=== PATIENT | female | born 1990 | race Caucasian/White ===

== ENCOUNTER 2016-07-29 15:13 | Emergency (ER) | payer SELFPAY ==
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
[2016-07-29] MEDS ORDERED: IOPAMIDOL (ISOVUE-300) 100 ML BTL IV ONE (15:44)
[2016-07-29 16:05] LABS: % IMMATURE GRANULYOCYTES 0.3 % (0.0-1.1); ABSOLUTE IMMATURE GRANULOCYTES 0.03 10^3/uL (0.00-0.10); ADD DIFF? NO; ADD MORPH? NO; ADD SCAN? NO; ATYPICAL LYMPHOCYTE FLAG 10 (0-99); FRAGMENT RBC FLAG 0 (0-99); HEMATOCRIT 38.2 % (38.0-47.0); HEMOGLOBIN 13.2 g/dL (12.6-16.3); LEFT SHIFT FLG 0 (0-99); LIPEMIA HEMOLYSIS FLAG 90 (0-99); MEAN CELL HEMOGLOBIN 33.8 pg (27.9-34.1); MEAN CELL HEMOGLOBIN CONCENTR. 34.6 g/dL (32.4-36.7); MEAN CELL VOLUME 97.9 fL (81.5-99.8); MEAN PLATELET VOLUME 10.3 fL (8.7-11.7); PLATELET CLUMPS FLAG 0 (0-99); PLATELET COUNT 291 10^3/uL (150-400); RED CELL DISTRIBUTION WIDTH 11.8 % (11.5-15.2)
[2016-07-29 16:14] LABS: COLOR YELLOW; LEUKOCYTE ESTERASE,URINE NEGATIVE (NEGATIVE); NITRITE,URINE NEGATIVE (NEGATIVE); PH,URINE 5.5 (5.0-7.5)
[2016-07-29 16:23] LABS: ALANINE AMINOTRANSFERASE 28 IU/L (9-52); ALBUMIN 3.9 g/dL (3.5-5.0); ALKALINE PHOSPHATASE 58 IU/L (38-126); ANION GAP 13 mEq/L (8-16); ASPARTATE AMINOTRANSFERASE 18 IU/L (14-46); BILIRUBIN,TOTAL 0.6 mg/dL (0.1-1.4); BILIRUBIN-CONJUGATED 0.3 mg/dL (0.0-0.5); BILIRUBIN-UNCONJUGATED 0.3 mg/dL (0.0-1.1); CALCIUM 9.3 mg/dL (8.5-10.4); CARBON DIOXIDE 24 mEq/l (22-31); CHLORIDE 108 mEq/L (97-110); CREATININE 0.6 mg/dL (0.6-1.0); GLOMERULAR FILTRATION RATE > 60; GLUCOSE 124 mg/dL (70-100); POTASSIUM 3.7 mEq/L (3.5-5.2); SODIUM 145 mEq/L (134-144); TOTAL PROTEIN 6.8 g/dL (6.3-8.2)
[2016-07-29 16:24] LABS: BACTERIA 1+ /hpf (NONE SEEN); MUCUS 2+ /lpf (NONE-1+); WBC,URINE 0-1 /hpf (0-3)
[2016-07-29 16:25] LABS: AMORPHOUS 2+ /hpf (NONE-1+)
[2016-07-29] MEDS ORDERED: NS 1,000 ML IV ONE (18:15)
[2016-07-29] MEDS ORDERED: ONDANSETRON 4 MG/2 ML VIAL IVP ONE (19:01)
--- NOTE | 2016-07-29 19:44 | CT ---
CT Scan of the Abdomen and Pelvis (With Contrast) 1715 hours History: Right lower quadrant Technique: Axial computed tomographic images of the abdomen and pelvis were obtained with the unevent ful intravenous administration of 84 mL Isovue-300 contrast. No oral or rectal contrast which limits the study. Dose reduction techniques were utilized. CT Abdomen Findings: Lung bases: Normal. Liver: Normal. Biliary system: No obstruction. Spleen: Normal. Pancreas: Normal. Adrenals: Normal. Kidneys: Right kidney is in normal position without obstruction. Left kidney is in the pelvis malrota lauren with dual collecting systems anterior/superior lateral and inferior laterally. No inflammatory ch anges or obstruction. Benign-appearing subcentimeter cortical cysts noted. Abdominal Aorta: No aneurysm. No bowel obstruction, ascites, or significant retroperitoneal lymphadenopathy. CT Pelvis Findings: No evidence of inflammatory changes involving the appendix or cecal region. The r ight ovary measures 3.5 x 2.6 cm without abnormal enlargement or adjacent free fluid appear left ovar y uterus appear normal. Moderate stool in the rectosigmoid colon without inflammatory changes. Right paramedian disk herniation, extrusion L5-S1 causing at least moderate stenosis. Impression: 1. Malrotated left-sided pelvic kidney without obstruction or inflammation. Normal position right kid arely without obstruction or inflammation. 2. No CT evidence of appendicitis, abscess or bowel obstruction. 3. mild constipation. 4. No adnexal masses or significant free fluid. 5. Right paramedian disk herniation, extrusion causing at least moderate stenosis. Findings and recommendations discussed with Emergency Department physician, Omar Gomez PA-C at 181 5 hour, today. Final report concurs with initial preliminary interpretation.
[2016-07-29 20:12] VITALS: BP 133/72; PULSE 68; RESP 20; TEMP 98.2; O2SAT 94
== END 2016-07-29 20:04 | disposition home or self-care (01) ==
LOC: CED 15:13
DX: R10.9 Unspecified abdominal pain (principal)
CPT/HCPCS: 74177-PO; 80048-PO; 80076-PO; 81003-PO; 81015-PO; 83690-PO; 84703-PO; 85025-PO; 96361-PO; 96374-PO; 99214-PO; G0463-PO; J2405; Q9967

== ENCOUNTER 2018-12-01 06:13 | Emergency (ER) | payer BC, OTHER ==
[2018-12-01] MEDS ORDERED: NS 1,000 ML IV ONE (06:27)
[2018-12-01] MEDS ORDERED: ONDANSETRON 4 MG/2 ML VIAL IVP ONE (06:27)
--- NOTE | 2018-12-01 06:31 | EDPHY ---
H & P Stated Complaint: R side abd pain, n/v/d since saturday - Personal History LMP (Females 10-55): Now Current Tetanus Diphtheria and Acellular Pertussis (TDAP): Yes - Medical/Surgical History Hx Asthma: No Hx Chronic Respiratory Disease: No Hx Diabetes: No Hx Cardiac Disease: No Hx Renal Disease: No Hx Cirrhosis: No Hx Alcoholism: No Hx HIV/AIDS: No Hx Splenectomy or Spleen Trauma: No Other PMH: denies - Social History Smoking Status: Current every day smoker Time Seen by Provider: 12/01/18 06:20 HPI/ROS: Chief Complaint: Abdominal pain, nausea, vomiting HPI: 27-year-old G0 woman had 2 days of worsening abdominal pain. Patient states she began having central abdominal pain 2 days ago. Following day had nausea vomiting and persistent pain. Pain has migrated to the right lower abdomen. Is about an 8/10. It is constant. Is worse with movement or bumps. Continues have some nausea but no vomiting. Last menstrual. Just and did in the last day or so. She does not believe she is because she does not have sex with men. No fevers or chills. No cough. No urinary urgency or frequency. No abnormal vaginal discharge. Does not have a history of similar pain in the past. No surgeries. ROS: 10 systems were reviewed and were negative except those elements noted in the HPI. PMH: Bipolar disorder Social History: Positive smoking, occasional alcohol, no recreational drug use Family History: non-contributory Physical Exam: Gen: Awake, Alert, No Distress HEENT: Nose: no rhinorrhea Eyes: PERRLA, EOMI Mouth: Moist mucosa Neck: Supple, no JVD Chest: nontender, lungs clear to auscultation Heart: S1, S2 normal, no murmur Abd: Soft, tenderness right lower quadrant with voluntary guarding, positive Rovsing sign Back: no CVA tenderness, no midline tenderness Ext: no edema, non-tender Skin: no rash Neuro: CN II-XII intact, Sensation grossly intact, Strength 5/5 in bilateral upper and lower extremities (Josafat Thomason) Constitutional: Initial Vital Signs Temperature (C) 36.7 C 12/01/18 06:15 Heart Rate 81 12/01/18 06:15 Respiratory Rate 16 12/01/18 06:15 Blood Pressure 116/85 H 12/01/18 06:15 O2 Sat (%) 97 12/01/18 06:15 O2 Delivery Mode Room Air Allergies/Adverse Reactions: No Known Allergies Allergy (Unverified 12/01/18 06:17) Home Medications: Medication Instructions Recorded Hydrocodone/APAP 5/325 [[place] 1 each PO Q4-6PRN PRN #10 tab 12/01/18 5/325 (*)] [place] Carbon[place] 12/01/18 Medical Decision Making - Diagnostics Imaging Results: Imaging Impressions Abdomen CT 12/01/18 07:50 Impression: 1. Appendix not identified, although no secondary evidence of appendicitis. 2. Right ovarian 2.6 x 2.5 x 2.1 cm complex cyst probably representing endometrioma, for which follow up ultrasound in 8-12 weeks is recommended. 3. Left-sided pelvic kidney. No urinary tract obstruction or pyelonephritis. Findings and recommendations discussed with Emergency Department physician, Jose Velazquez, at 8:30 a.m. on December 01, 2018. Final report concurs with initial preliminary interpretation. Ultrasound of the pelvis reviewed by me and results from direct Radiology show a complex echogenic 2.6 by 2.5 x 2.1 right ovarian cyst. No evidence for ovarian torsion. Trace free fluid in the pelvis. Ultrasound appendix is not visualized CT abdomen does not show the appendix. No secondary signs of appendicitis. Reviewed by me and discussed with . (Jose Velazquez) ED Course/Re-evaluation: Patient seen by me at 7:40 a.m.. She has had her ultrasound and results are currently pending. Labs are reviewed. Patient is stable. She does not wish any medication for pain or nausea at this point Re-examination by me shows some tenderness at the right adnexa. She has tenderness at McBurney's point as well. The patient and her father and I discussed imaging study results. We discussed that there is a positive finding on the right that likely explains her discomfort. We discussed that we could not see the appendix on ultrasound. They request CT to further visualize the appendix Re-evaluation 8:45 a.m.. Patient and I discussed imaging and lab results. We discussed treatment plan including criteria for return importance of follow-up further evaluation. She expresses understanding and agreement (Jose Velazquez) Patient signed out to Dr. Velazquez pending laboratory studies and imaging. (Josafat Thomason) Differential Diagnosis: Right-sided abdominal pain. We considered appendicitis, diverticulitis, ectopic , ovarian cyst, pyelonephritis. It appears that this is ovarian cyst. We do not see the appendix however she does have right-sided pathology that would explain her symptoms. Otherwise lab evaluation is normal Patient is on lithium and so we want to be very cautious about using anti- inflammatories for pain control (Jose Velazquez) - Data Points Laboratory Results: Laboratory Results 12/01/18 06:25 12/01/18 06:25 Medications Given: Discontinued Medications Sodium Chloride (Ns) 1,000 mls @ 0 mls/hr IV ONCE ONE; Wide Open PRN Reason: Protocol Stop: 12/01/18 06:28 Last Admin: 12/01/18 06:30 Dose: 1,000 mls Morphine Sulfate (Morphine) 4 mg IVP ONCE ONE Stop: 12/01/18 06:28 Last Admin: 12/01/18 06:31 Dose: 4 mg Ondansetron HCl (Zofran) 4 mg IVP EDNOW ONE Stop: 12/01/18 06:28 Last Admin: 12/01/18 06:30 Dose: 4 mg Departure - Departure Disposition: Home, Routine, Self-Care Clinical Impression: Ovarian cyst Qualifiers: Laterality: right Qualified Code(s): N83.201 - Unspecified ovarian cyst, right side Condition: Good Instructions: Ovarian Cyst (ED) Additional Instructions: Heat to sore area of abdomen next 24 hr. Ibuprofen 400 mg twice daily for pain. Do not take more than this as it can increase your lithium level Hydrocodone 1 pill every 4 hr as needed for pain. Return for worsening symptoms Re-evaluation in 2-3 days if not improved. Follow-up with gynecology Referrals: NONE *PRIMARY CARE P,. [Primary Care Provider] - As per Instructions Clarissa Lerner MD [Medical Doctor] - 2-3 days, call for appt. Stand Alone Forms: Work Excuse Prescriptions: Hydrocodone/APAP 5/325 [[place] 5/325 (*)] 1 each PO Q4-6PRN PRN #10 tab PRN Reason: Pain, Moderate
[2018-12-01 07:33] LABS: PLATELET COUNT 294 10^3/uL (150-400)
[2018-12-01] MEDS ORDERED: IOPAMIDOL (ISOVUE-300) 100 ML BTL ONE (07:55)
[2018-12-01 09:00] VITALS: BP 101/66
== END 2018-12-01 09:02 | disposition home or self-care (01) ==
DX: R10.84 Generalized abdominal pain (principal); R11.2 Nausea with vomiting, unspecified; E86.9 Volume depletion, unspecified; F31.9 Bipolar disorder, unspecified
CPT/HCPCS: 96374; J2270; J2405; Q9967